=== PATIENT | female | born 1965 | race Caucasian/White ===

== ENCOUNTER 2021-12-17 22:38 | Emergency (ER) | payer OTHER ==
[~2021-12-17] VITALS: Ht 165.1 cm; Wt 77.1 kg
[2021-12-17 22:51] VITALS: BP 136/92
--- NOTE | 2021-12-17 23:05 | NUR ---
Blood for labwork drawn from left arm per traffic monitor specialist. Patient tolerated well.
[2021-12-17 23:14] LABS: APPEARANCE,URINE CLEAR (CLEAR); BILIRUBIN,URINE NEGATIVE (NEGATIVE); BLOOD, URINE NEGATIVE (NEGATIVE); COLOR,URINE YELLOW (YELLOW); LEUKOCYTE ESTERASE ,URINE NEGATIVE (NEGATIVE); NITRITE, URINE NEGATIVE (NEGATIVE); UGLUCOSE 3+ (NEGATIVE)
[2021-12-17 23:18] LABS: BASOPHILS % (AUTO) 0.6 % (0.0-2.0); EOSINOPHILS # (AUTO) 0.6 K/uL (0-0.4); EOSINOPHILS % (AUTO) 9.1 % (0.0-4.0); HEMATOCRIT 45.5 % (36-48); HEMOGLOBIN 15.7 g/dL (12.0-16.0); LYMPHOCYTES # (AUTO) 2.4 K/uL (2.5-16.5); LYMPHOCYTES % (AUTO) 35.6 % (20.5-51.1); MEAN CORPUSCULAR HEMOGLOBIN 31 pg (27-31); MEAN CORPUSCULAR HGB CONC 35 g/dL (33-37); MEAN CORPUSCULAR VOLUME 90.7 fL (80-94); MONOCYTES # (AUTO) 0.7 K/uL (0.8-1.0); MONOCYTES % (AUTO) 10.5 % (1.7-9.3); NEUTROPHILS % (AUTO) 44.2 % (42.2-75.2); PLATELET COUNT (AUTO) 260 K/uL (140-450); RED BLOOD CELL COUNT(AUTO) 5.01 MIL/uL (4.20-5.40); RED CELL DISTRIBUTION WIDTH 13.4 % (11.6-13.7); WHITE BLOOD COUNT (AUTO) 6.7 K/uL (4.8-10.8)
[2021-12-17 23:32] LABS: RBC,URINE 0-5 /HPF (0-5); WBC,URINE 0-5 /HPF (0-5)
[2021-12-17 23:37] LABS: ALBUMIN 3.9 g/dL (3.4-5.0); ANION GAP 11.6 (8-16); CARBON DIOXIDE 27.7 mmol/L (21-32); CREATININE 0.7 mg/dL (0.6-1.3); POTASSIUM 3.3 mmol/L (3.5-5.1); TOTAL BILIRUBIN 0.3 mg/dL (0.0-1.0)
--- NOTE | 2021-12-18 00:27 | NUR ---
Patient ambulated to bed 12.
--- NOTE | 2021-12-18 00:58 | NUR ---
56 YO F BIB SELF WITH C/C OF 8/10 LEFT PELVIC PAIN RAD TO HIPS X2DAYS. DENIES N/V/D. DENIES VAGINAL BLEEDING/DISCHARGE AND URINARY CHANGES. PT STATES SHE HAS BEEN TKAING IBUPROFEN WITH SOME RELIEF. HX:DM AND HTN NKA
[2021-12-18] MEDS ORDERED: GABAPENTIN 300 MG CAP PO ONE (02:15)
[2021-12-18] MEDS ORDERED: ACETAMINOPHEN EXTRA STRENGTH 500 MG TAB PO ONE (02:15)
[2021-12-18] MEDS ORDERED: KETOROLAC 60 MG/2 ML VIAL IM ONE (02:15)
[2021-12-18] MEDS ORDERED: ACET-10509 PO (02:18)
[2021-12-18] MEDS ORDERED: ACYC-278 PO (02:18)
[2021-12-18] MEDS ORDERED: GABA300C PO (02:18)
[2021-12-18] MEDS ORDERED: IBUP-2213 PO (02:18)
[2021-12-18] MEDS ORDERED: LID5T TP (02:18)
[2021-12-18 02:45] VITALS: BP 126/77
--- NOTE | 2021-12-18 02:45 | NUR ---
Patient discharged with v/s stable. Written and verbal after care instructions given and explained. Patient alert, oriented and verbalized understanding of instructions. Ambulatory with steady gait. All questions addressed prior to discharge. ID band removed. Patient advised to follow up with PMD. Rx of ACICLOVIR, GABAPENTIN, TYLENOL AND IBUPROFEN given. Patient educated on indication of medication including possible reaction and side effects. Opportunity to ask questions provided and answered.
== END 2021-12-18 02:45 | disposition home or self-care (01) ==
LOC: MED 22:38
DX: B02.9 Zoster without complications (principal); M54.9 Dorsalgia, unspecified
CPT/HCPCS: 36415; 80053; 81001; 81025; 83690; 85025; 96372; 99283; J1885

== ENCOUNTER 2024-02-28 23:29 | Emergency (ER) | payer OTHER ==
[~2024-02-28] VITALS: Ht 165.1 cm; Wt 72.6 kg
[~2024-02-28 23:29] MED LIST: ACET-10509 PO; ACYC-278 PO; GABA300C PO; IBUP-2213 PO; LID5T TP
[2024-02-28 23:30] VITALS: BP 152/91; PULSE 70; RESP 16; TEMP 97.4; O2SAT 97
[2024-02-29] MEDS ORDERED: IBUP-2213 PO (01:08)
[2024-02-29] MEDS: IBUPROFEN 600 MG TAB PO ONE (01:19)
[2024-02-29] MEDS: ACETAMINOPHEN EXTRA STRENGTH 500 MG TAB PO ONE (01:20)
== END 2024-02-29 01:21 | disposition home or self-care (01) ==
LOC: MED 23:29
DX: S62.525A Nondisplaced fracture of distal phalanx of left thumb, initial encounter for closed fracture (principal); Z79.1 Long term (current) use of non-steroidal anti-inflammatories (NSAID); Z79.899 Other long term (current) drug therapy; V09.9XXA Pedestrian injured in unspecified transport accident, initial encounter; Y93.89 Activity, other specified; Y92.89 Other specified places as the place of occurrence of the external cause; Y99.8 Other external cause status
CPT/HCPCS: 73140; 99283